=== PATIENT | female | born 1990 | race Two or more races ===

== ENCOUNTER 2019-05-28 13:08 | Emergency (ER) | payer MEDICAID ==
[~2019-05-28] VITALS: Ht 165.1 cm; Wt 62.6 kg
[2019-05-28] MEDS ORDERED: HYDROcodone-ACET 5/325MG TAB PO ONE (14:45)
[2019-05-28 15:56] VITALS: BP 115/77
[2019-05-28] MEDS ORDERED: ONDANSETRON HCL 4 MG/2 ML VIAL IV ONE (16:15)
[2019-05-28] MEDS ORDERED: MORPHINE SULFATE 4 MG/ML SYR/VIAL IV ONE (16:15)
== END 2019-05-28 18:08 | disposition home or self-care (01) ==
LOC: ER 13:08
DX: S52.021A Displaced fracture of olecranon process without intraarticular extension of right ulna, initial encounter for closed fracture (principal); R51 Headache; V29.9XXA Motorcycle rider (driver) (passenger) injured in unspecified traffic accident, initial encounter; Y93.55 Activity, bike riding; Y92.89 Other specified places as the place of occurrence of the external cause; Y99.8 Other external cause status
CPT/HCPCS: 29105; 70450; 73070; 73630; 74176; 96374; 96375; 99284; J2270; J2405